=== PATIENT | female | born 1990 | race Caucasian/White ===

== ENCOUNTER 2023-03-01 19:47 | Observation (INO) | payer OTHER ==
[2023-03-01 20:15] LABS: MEAN CELL VOLUME 63.9 fl (80-96); MEAN PLT VOLUME 8.5 fl (7.5-11.1); PLATELET COUNT 328.2 10^3/uL (134-434); RBC 2.72 10^6/uL (3.60-5.2); RDW 23.6 % (11.6-15.6); WHITE BLOOD COUNT 5.9 10^3/uL (4.0-10.8)
[2023-03-01 20:17] LABS: MCH 18.6 pg (25.7-33.7)
[2023-03-01 20:19] LABS: HEMATOCRIT 17.4 % (32.4-45.2); HEMOGLOBIN 5.1 G/dL (10.7-15.3)
[2023-03-01 20:19] LABS: INR 0.94 (0.83-1.09); PROTHROMBIN TIME (PATIENT) 10.9 SEC (9.7-13.0)
[2023-03-01 20:30] LABS: ALBUMIN 4.3 g/dl (3.4-5.0); BILIRUBIN,TOTAL 0.2 mg/dl (0.2-1); BLOOD UREA NITROGEN 11.2 mg/dl (7-18); CALCIUM 9.1 mg/dl (8.5-10.1); CREATININE 0.6 mg/dl (0.6-1.3); POTASSIUM 4.1 mmol/L (3.5-5.1); SGOT/AST 16.3 U/L (15-37); SGPT/ALT 18.6 U/L (7-52); TOT PROT 7.6 g/dl (6.4-8.2)
[2023-03-01] MEDS ORDERED: SODIUM CHLORIDE 1,000 ML IV ONE (20:50)
[2023-03-01] MEDS ORDERED: DOCUSATE SODIUM 100 MG CAPSULE (FP) PO PRN (21:54)
[2023-03-01 22:13] LABS: LDH 128 U/L (84-246)
[2023-03-02 00:14] VITALS: BMI 24.3
[2023-03-02 00:44] LABS: IRON SERUM 17 ug/dL (50-175); TOTAL IRON BINDING CAPACITY 683 ug/dL (250-450)
[2023-03-02] MEDS: ACETAMINOPHEN 325 MG TABLET (FP) PO PRN (07:12)
[2023-03-02 08:47] LABS: BLOOD UREA NITROGEN 8.4 mg/dl (7-18); CALCIUM 8.7 mg/dl (8.5-10.1); CREATININE 0.5 mg/dl (0.6-1.3); POTASSIUM 4.3 mmol/L (3.5-5.1)
[2023-03-02 10:06] LABS: BASO % 2.4 % (0-2.0); EOS % 8.9 % (0-4.5); LYMPH % 36.4 % (8-40); MCHC 30.3 g/dl (32.0-36.0); MEAN CELL VOLUME 64.7 fl (80-96); MONO % 10.5 % (3.8-10.2); NEUT % 41.8 % (42.8-82.8); PLATELET COUNT 288 10^3/uL (134-434); RBC 3.24 M/mm3 (3.60-5.2); RDW 24.1 % (11.6-15.6)
[2023-03-02 10:07] LABS: MCH 19.6 pg (25.7-33.7)
[2023-03-02 10:15] LABS: HEMOGLOBIN 6.4 GM/dL (10.7-15.3)
[2023-03-02 11:19] LABS: ANISOCYTOSIS 2+; MACROCYTOSIS 0; OVALOCYTE 1+
[2023-03-02 19:45] LABS: HEMATOCRIT 28.7 % (32.4-45.2); HEMOGLOBIN 8.7 G/dL (10.7-15.3); MCH 21.6 pg (25.7-33.7); MCHC 30.2 g/dl (32.0-36.0); MEAN CELL VOLUME 71.5 fl (80-96); PLATELET COUNT 292.6 10^3/uL (134-434); RBC 4.01 10^6/uL (3.60-5.2); RDW 26.4 % (11.6-15.6); WHITE BLOOD COUNT 4.7 10^3/uL (4.0-10.8)
[2023-03-03 02:10] VITALS: RESP 18
[2023-03-03] MEDS: ACETAMINOPHEN 325 MG TABLET (FP) PO PRN (07:36)
[2023-03-03 08:21] LABS: HEMATOCRIT 26.7 % (32.4-45.2); MCH 21.3 pg (25.7-33.7); MCHC 30.1 g/dl (32.0-36.0); MEAN CELL VOLUME 70.8 fl (80-96); MEAN PLT VOLUME 9.4 fl (7.5-11.1); PLATELET COUNT 279.7 10^3/uL (134-434); RBC 3.77 10^6/uL (3.60-5.2); RDW 24.9 % (11.6-15.6); WHITE BLOOD COUNT 5.1 10^3/uL (4.0-10.8)
[2023-03-03 08:50] LABS: BLOOD UREA NITROGEN 10.3 mg/dl (7-18); CALCIUM 9.4 mg/dl (8.5-10.1); CREATININE 0.6 mg/dl (0.6-1.3); POTASSIUM 4.6 mmol/L (3.5-5.1)
[2023-03-03 09:09] VITALS: BP 106/60; PULSE 81; TEMP 98.2
== END 2023-03-03 10:20 | disposition home or self-care (01) ==
LOC: FER 19:47 → FM/S 21:26
PROVIDERS: ADMIT Internal Medicine; ATTEND Internal Medicine
PROC: 30233N1 Transfusion of Nonautologous Red Blood Cells into Peripheral Vein, Percutaneous Approach (ICD-10-PCS; principal; 2023-03-01)
PROC: 3E0337Z Introduction of Electrolytic and Water Balance Substance into Peripheral Vein, Percutaneous Approach (ICD-10-PCS; 2023-03-01)
DX: D64.9 Anemia, unspecified (principal); N92.0 Excessive and frequent menstruation with regular cycle
CPT/HCPCS: 36415; 36430; 80048; 80053; 81025; 82272; 82728; 83540; 83550; 83615; 85025; 85027; 85045; 85610; 85730; 86900; 86922; 96360; 99285-25; G0378; P9058

== ENCOUNTER → 2023-03-16 | Day surgery (SDC) | payer OTHER | END | disposition home or self-care (01) | LOC: JRADUS-SUR 10:02 | PROVIDERS: ATTEND Obstetrics & Gynecology | PROC: BU18YZZ Fluoroscopy of Uterus and Fallopian Tubes using Other Contrast (ICD-10-PCS; principal; 2023-03-16) | DX: N93.9 Abnormal uterine and vaginal bleeding, unspecified (principal); D64.9 Anemia, unspecified | CPT/HCPCS: 36415; 58340; 74740-TC-FY; 76000-TC-FY; 84702 ==

== ENCOUNTER 2023-04-03 21:38 | Observation (INO) | payer OTHER ==
[2023-04-03 21:44] VITALS: BMI 22.2
[2023-04-03 22:20] LABS: CHLORIDE 109 mmol/L (98-107); POTASSIUM 3.8 mmol/L (3.5-5.1); SODIUM 141 mmol/L (136-145)
[2023-04-03 22:22] LABS: ALBUMIN 3.5 g/dl (3.4-5.0); ANION GAP 7 mmol/L (4-13); BLOOD UREA NITROGEN 14.4 mg/dL (7-18); CALCIUM 8.6 mg/dL (8.5-10.1); CO2 25 mmol/L (21-32); GLUCOSE,RANDOM 101 mg/dL (74-106)
[2023-04-03 22:25] LABS: CREATININE 0.7 mg/dL (0.55-1.3); SGPT/ALT 22 U/L (13-61)
[2023-04-03 22:26] LABS: SGOT/AST 18 U/L (15-37)
[2023-04-03 22:27] LABS: BILIRUBIN,TOTAL < 0.1 mg/dL (0.2-1); TOT PROT 7.1 g/dl (6.4-8.2)
[2023-04-03 22:28] LABS: ALK PHOS 62 U/L (45-117)
[2023-04-04 09:02] LABS: HEMATOCRIT 35.2 % (32.4-45.2); HEMOGLOBIN 11.5 GM/dL (10.7-15.3); MCHC 32.8 g/dl (32.0-36.0); MEAN CELL VOLUME 79.3 fl (80-96); MEAN PLT VOLUME 9.7 fl (7.5-11.1); PLATELET COUNT 216 10^3/uL (134-434); RBC 4.45 M/mm3 (3.60-5.2); RDW 24.5 % (11.6-15.6); WHITE BLOOD COUNT 6.9 K/mm3 (4.0-10.0)
[2023-04-04 09:20] LABS: POTASSIUM 3.9 mmol/L (3.5-5.1)
[2023-04-04 09:23] LABS: CALCIUM 9.1 mg/dL (8.5-10.1)
[2023-04-04 09:24] LABS: BLOOD UREA NITROGEN 9.7 mg/dL (7-18); MAGNESIUM 2.4 mg/dL (1.8-2.4)
[2023-04-04 09:27] LABS: CREATININE 0.7 mg/dL (0.55-1.3); PHOSPHOROUS 3.2 mg/dL (2.5-4.9)
[2023-04-04 09:29] LABS: BILIRUBIN,TOTAL 1.1 mg/dL (0.2-1); TOT PROT 8.1 g/dl (6.4-8.2)
[2023-04-04 11:06] LABS: HEMATOCRIT 30.1 % (32.4-45.2); HEMOGLOBIN 9.8 GM/dL (10.7-15.3); MCH 25.9 pg (25.7-33.7); MCHC 32.4 g/dl (32.0-36.0); MEAN CELL VOLUME 79.9 fl (80-96); MEAN PLT VOLUME 8.9 fl (7.5-11.1); PLATELET COUNT 207 10^3/uL (134-434); RBC 3.76 M/mm3 (3.60-5.2); RDW 24.6 % (11.6-15.6); WHITE BLOOD COUNT 7.4 K/mm3 (4.0-10.0)
[2023-04-04 12:19] VITALS: BP 93/50; PULSE 85; RESP 18; TEMP 98.4
== END 2023-04-04 12:15 | disposition home or self-care (01) ==
LOC: JER 21:38 → JERBED 23:19
PROVIDERS: ADMIT Internal Medicine; ATTEND Internal Medicine
PROC: 30233N1 Transfusion of Nonautologous Red Blood Cells into Peripheral Vein, Percutaneous Approach (ICD-10-PCS; principal; 2023-04-03)
DX: D64.9 Anemia, unspecified (principal); D25.9 Leiomyoma of uterus, unspecified; Z29.89 Encounter for other specified prophylactic measures
CPT/HCPCS: 36415; 36430; 80053; 83735; 84100; 84703; 85027; 86850; 86900; 86901; 86922; 93005; 93010; 99285-25; G0378; P9058

== ENCOUNTER 2023-05-22 04:30 | Day surgery (SDC) | payer OTHER ==
[2023-05-16 16:24] VITALS: BMI 22.2
[2023-05-22] MEDS ORDERED: PROPOFOL 20 ML ONE (13:31)
[2023-05-22] MEDS ORDERED: MIDAZOLAM HCL 2 MG/2 ML SINGLE DOSE VIAL ONE (13:31)
[2023-05-22] MEDS ORDERED: LIDOCAINE HCL/PF 2% SDV 5ML VIAL ONE (13:31)
[2023-05-22] MEDS ORDERED: DEXAMETHASONE SOD PHOSPHATE 4 MG/1 ML VIAL ONE (13:57)
[2023-05-22] MEDS ORDERED: ONDANSETRON 4 MG/2 ML VIAL ONE (13:57)
[2023-05-22] MEDS ORDERED: KETOROLAC TROMETHAMINE 30 MG/1 ML VIAL ONE (14:29)
[2023-05-22] MEDS ORDERED: IBUPROFEN 400 MG TABLET (FP) PO PRN (14:48)
[2023-05-22] MEDS ORDERED: oxyCODONE HCL 5 MG TABLET PO PRN (14:48)
[2023-05-22] MEDS ORDERED: ACETAMINOPHEN 325 MG TABLET (FP) PO PRN (14:48)
[2023-05-22] MEDS ORDERED: ONDANSETRON 4 MG/2 ML VIAL IVPUSH PRN (15:03)
[2023-05-22] MEDS ORDERED: ACETAMINOPHEN 1000 MG/100 ML BAG IVPB PRN (15:04)
[2023-05-22] MEDS ORDERED: LACTATED RINGERS SOLUTION 1,000 ML IV SCH (15:15)
[2023-05-22] MEDS ORDERED: ACETAMINOPHEN INJECTION 100 ML IVPB ONE (15:21)
[2023-05-22 16:22] VITALS: RESP 18
[2023-05-22 17:14] VITALS: BP 112/64; PULSE 83; TEMP 98.6
== END 2023-05-22 17:00 | disposition home or self-care (01) ==
LOC: JASU-SURG 04:30
PROVIDERS: ATTEND Obstetrics & Gynecology
PROC: 0UB98ZZ Excision of Uterus, Via Natural or Artificial Opening Endoscopic (ICD-10-PCS; principal; 2023-05-22 13:00)
DX: D25.0 Submucous leiomyoma of uterus (principal)
CPT/HCPCS: 81025; 94760

== ENCOUNTER → 2023-06-12 | Day surgery (SDC) | payer OTHER | END | disposition home or self-care (01) | LOC: JRADUS 12:36 → JRADUS-SUR 13:10 → EDSTATUS 14:30 | PROVIDERS: ATTEND Obstetrics & Gynecology | PROC: BU18YZZ Fluoroscopy of Uterus and Fallopian Tubes using Other Contrast (ICD-10-PCS; principal; 2023-06-12) | DX: D25.9 Leiomyoma of uterus, unspecified (principal) | CPT/HCPCS: 36415; 58340; 76831; 84702 ==